=== PATIENT | male | born 1935 | race Caucasian/White ===

== ENCOUNTER 2020-12-15 08:48 | Inpatient (IN) ==
[2020-12-15] MEDS ORDERED: NS 0.9% 1000 ml BAG 1,000 ML IV ONE ×2 (09:06→10:37)
[2020-12-15] MEDS ORDERED: Albuterol/Ipratropium NEB.SOL (2.5/0.5 MG) 3 ML NEB.SOLN INH ONE (09:06)
[2020-12-15 09:40] LABS: Hematocrit 42 % (42-52); Hemoglobin 14.1 g/dL (14.0-18.0); Mean Corpuscular HGB Conc 33 g/dL (31-36); Mean Corpuscular Hemoglobin 30 pg (27-31); Mean Corpuscular Volume 91 fL (80-94); Mean Platelet Volume 10.9 fL (7.4-10.4); Platelet Count 7 10^3/uL (150-450); Red Blood Count 4.69 10^6 /uL (4.18-5.48); Red Cell Distribution Width 15 % (10-15); White Blood Count 9.5 10^3/uL (3.5-10.8)
[2020-12-15 09:41] LABS: ABS Lymphocytes 0.3 10^3/ul (1.0-4.8); ABS Monocytes 0.4 10^3/ul (0-0.8); ABS Neutrophils 8.7 10^3/ul (1.5-7.7); Lymphocyte % 3.4 %
[2020-12-15 09:52] LABS: Albumin 3.6 g/dL (3.2-5.2); Albumin/Globulin Ratio 1.5 (1-3); Calcium 8.7 mg/dL (8.6-10.3); EGFR African American 74.2 (>60); EGFR Non-African American 61.3 (>60); Globulin 2.4 g/dL (2-4); Potassium 4.9 mmol/L (3.5-5.0); Total Bilirubin 0.9 mg/dL (0.2-1.0)
[2020-12-15] MEDS ORDERED: Azithromycin 500 mg/250 ml NS 500 MG/250 ML BAG IVPB ONE (10:37)
[2020-12-15] MEDS ORDERED: cefTRIAXone 1 gm/50 mL NS BAG 1 GM/50 ML BAG IV ONE (10:37)
[2020-12-15] MEDS ORDERED: Ondansetron 4 mg VIAL 2 MG/ML 2 ml VIAL IV PRN (11:41)
[2020-12-15] MEDS ORDERED: Enoxaparin 40 MG/0.4 ML SYR SUBCUT SCH (12:00)
[2020-12-15 12:39] LABS: ABS Lymphocytes 0.3 10^3/ul (1.0-4.8); ABS Monocytes 0.4 10^3/ul (0-0.8); ABS Neutrophils 8.3 10^3/ul (1.5-7.7); Hematocrit 37 % (42-52); Hemoglobin 12.5 g/dL (14.0-18.0); Lymphocyte % 2.9 %; Mean Corpuscular HGB Conc 34 g/dL (31-36); Mean Corpuscular Hemoglobin 30 pg (27-31); Mean Corpuscular Volume 90 fL (80-94); Mean Platelet Volume 10.5 fL (7.4-10.4); Platelet Count 7 10^3/uL (150-450); Red Blood Count 4.15 10^6 /uL (4.18-5.48); Red Cell Distribution Width 15 % (10-15)
[2020-12-15] MEDS ORDERED: Azithromycin 500 mg/250 mL NS IVPB ONE (14:30)
[2020-12-15 18:29] LABS: Mean Platelet Volume 9.3 fL (7.4-10.4); Platelet Count 29 10^3/uL (150-450)
[2020-12-15] MEDS: Mometasone/Formoter 100/5 MDI INH SCH (20:14)
[2020-12-16] MEDS: Hemorrhoidal OINT 1 TUBE PR PRN (00:13)
[2020-12-16] MEDS: Albuterol/Ipratropium NEB.SOL (2.5/0.5 MG) 3 ML NEB.SOLN INH PRN (04:42)
[2020-12-16 06:23] LABS: ABS Lymphocytes 0.4 10^3/ul (1.0-4.8); ABS Monocytes 0.4 10^3/ul (0-0.8); ABS Neutrophils 8.6 10^3/ul (1.5-7.7); Hematocrit 42 % (42-52); Hemoglobin 13.9 g/dL (14.0-18.0); Lymphocyte % 4.1 %; Mean Corpuscular HGB Conc 33 g/dL (31-36); Mean Corpuscular Hemoglobin 30 pg (27-31); Mean Corpuscular Volume 91 fL (80-94); Mean Platelet Volume 11.2 fL (7.4-10.4); Platelet Count 8 10^3/uL (150-450); Red Blood Count 4.62 10^6 /uL (4.18-5.48); Red Cell Distribution Width 15 % (10-15); White Blood Count 9.4 10^3/uL (3.5-10.8)
[2020-12-16 06:37] LABS: Calcium 8.7 mg/dL (8.6-10.3); EGFR African American 98.8 (>60); EGFR Non-African American 81.6 (>60); Potassium 4.3 mmol/L (3.5-5.0)
[2020-12-16] MEDS: Mometasone/Formoter 100/5 MDI INH SCH ×2 (07:29→19:40)
[2020-12-16] MEDS ORDERED: Perflutren Lipid Microsphere 3 ML VIAL ONE (09:51)
[2020-12-16 10:50] LABS: Corrected Retic Count 0.6 % (0.5-1.5); Hematocrit for Retic CNT 38 % (42-52); RBC Retic Count 4.24 10^6/uL (4.18-5.48)
[2020-12-16 10:57] LABS: Activated Partial Thrombo Time 27.6 seconds (26.0-38.0); Fibrinogen 243.9 mg/dL (110.8-404.3); INR 1.1 (0.82-1.09)
[2020-12-16] MEDS: Dexamethasone IV 40 MG in NS 0.9% 50 ML 50 ML IVPB SCH (13:57)
[2020-12-16 14:27] LABS: Mean Platelet Volume 7.8 fL (7.4-10.4); Platelet Count 26 10^3/uL (150-450)
[2020-12-17 06:00] LABS: ABS Lymphocytes 0.4 10^3/ul (1.0-4.8); ABS Monocytes 0.6 10^3/ul (0-0.8); ABS Neutrophils 8.1 10^3/ul (1.5-7.7); Hematocrit 36 % (42-52); Hemoglobin 12.2 g/dL (14.0-18.0); Lymphocyte % 3.8 %; Mean Corpuscular HGB Conc 34 g/dL (31-36); Mean Corpuscular Hemoglobin 30 pg (27-31); Mean Corpuscular Volume 90 fL (80-94); Mean Platelet Volume 10.4 fL (7.4-10.4); Platelet Count 15 10^3/uL (150-450); Red Blood Count 4.05 10^6 /uL (4.18-5.48); Red Cell Distribution Width 15 % (10-15); White Blood Count 9.1 10^3/uL (3.5-10.8)
[2020-12-17 06:19] LABS: Calcium 8.5 mg/dL (8.6-10.3); EGFR African American 110.1 (>60); Potassium 4.7 mmol/L (3.5-5.0)
[2020-12-17] MEDS: Mometasone/Formoter 100/5 MDI INH SCH ×2 (08:23→19:48)
[2020-12-17] MEDS ORDERED: Dexamethasone IV 4 MG/ML 5 ML VIAL (20 MG) ONE (09:11)
[2020-12-17] MEDS: Dexamethasone IV 40 MG in NS 0.9% 50 ML 50 ML IVPB SCH (09:56)
[2020-12-18 06:15] LABS: Hematocrit 36 % (42-52); Hemoglobin 12.3 g/dL (14.0-18.0); Mean Corpuscular HGB Conc 34 g/dL (31-36); Mean Corpuscular Hemoglobin 30 pg (27-31); Mean Corpuscular Volume 90 fL (80-94); Mean Platelet Volume 11.2 fL (7.4-10.4); Platelet Count 21 10^3/uL (150-450); Red Blood Count 4.05 10^6 /uL (4.18-5.48); Red Cell Distribution Width 15 % (10-15); White Blood Count 10.2 10^3/uL (3.5-10.8)
[2020-12-18 07:03] LABS: Calcium 8.7 mg/dL (8.6-10.3); EGFR African American 104.2 (>60); EGFR Non-African American 86.1 (>60); Potassium 4.9 mmol/L (3.5-5.0)
[2020-12-18 07:40] LABS: ABS Lymphocytes 0.5 10^3/ul (1.0-4.8); ABS Neutrophils 8.7 10^3/ul (1.5-7.7); Lymphocyte % 4.9 %
[2020-12-18] MEDS: Dexamethasone IV 40 MG in NS 0.9% 50 ML 50 ML IVPB SCH (08:30)
[2020-12-18] MEDS: Mometasone/Formoter 100/5 MDI INH SCH ×2 (10:40→20:02)
[2020-12-19] MEDS: Mometasone/Formoter 100/5 MDI INH SCH ×2 (07:32→20:11)
[2020-12-19] MEDS: Dexamethasone IV 40 MG in NS 0.9% 50 ML 50 ML IVPB SCH (09:09)
[2020-12-19 10:42] LABS: ABS Lymphocytes 2.1 10^3/ul (1.0-4.8); ABS Monocytes 0.5 10^3/ul (0-0.8); ABS Neutrophils 11.4 10^3/ul (1.5-7.7); Hematocrit 36 % (42-52); Hemoglobin 11.8 g/dL (14.0-18.0); Lymphocyte % 15.2 %; Mean Corpuscular HGB Conc 33 g/dL (31-36); Mean Corpuscular Hemoglobin 29 pg (27-31); Mean Corpuscular Volume 90 fL (80-94); Mean Platelet Volume 11.1 fL (7.4-10.4); Platelet Count 50 10^3/uL (150-450); Red Cell Distribution Width 14 % (10-15)
[2020-12-20 06:11] LABS: Hematocrit 33 % (42-52); Hemoglobin 11.1 g/dL (14.0-18.0); Mean Corpuscular HGB Conc 33 g/dL (31-36); Mean Corpuscular Hemoglobin 30 pg (27-31); Mean Corpuscular Volume 89 fL (80-94); Mean Platelet Volume 10.9 fL (7.4-10.4); Platelet Count 83 10^3/uL (150-450); Red Blood Count 3.74 10^6 /uL (4.18-5.48); Red Cell Distribution Width 15 % (10-15); White Blood Count 19.5 10^3/uL (3.5-10.8)
[2020-12-20 06:23] LABS: Blood Urea Nitrogen 31 mg/dL (6-24); CO2 Carbon Dioxide 37 mmol/L (22-32); Calcium 8.4 mg/dL (8.6-10.3); Chloride 93 mmol/L (101-111); EGFR African American 116.7 (>60); EGFR Non-African American 96.5 (>60); Glucose 122 mg/dL (70-100); Potassium 4.9 mmol/L (3.5-5.0); Sodium 130 mmol/L (135-145)
[2020-12-20 06:46] LABS: ABS Neutrophils 14.6 10^3/ul (1.5-7.7); Lymphocyte % 20.4 %
[2020-12-20] MEDS: Mometasone/Formoter 100/5 MDI INH SCH ×2 (08:44→19:16)
[2020-12-20 10:51] LABS: Magnesium 2.1 mg/dL (1.9-2.7)
[2020-12-21 05:56] LABS: Hematocrit 40 % (42-52); Hemoglobin 13.1 g/dL (14.0-18.0); Mean Corpuscular HGB Conc 33 g/dL (31-36); Mean Corpuscular Hemoglobin 30 pg (27-31); Mean Corpuscular Volume 90 fL (80-94); Mean Platelet Volume 9.9 fL (7.4-10.4); Platelet Count 144 10^3/uL (150-450); Red Blood Count 4.42 10^6 /uL (4.18-5.48); Red Cell Distribution Width 14 % (10-15); White Blood Count 16.1 10^3/uL (3.5-10.8)
[2020-12-21 06:18] LABS: CO2 Carbon Dioxide 40 mmol/L (22-32); Calcium 8.6 mg/dL (8.6-10.3); Chloride 93 mmol/L (101-111); Sodium 132 mmol/L (135-145)
[2020-12-21 06:24] LABS: Blood Urea Nitrogen 27 mg/dL (6-24); EGFR African American 92.7 (>60); EGFR Non-African American 76.6 (>60); Glucose 93 mg/dL (70-100)
[2020-12-21 06:25] LABS: Potassium 5.4 mmol/L (3.5-5.0)
[2020-12-21 06:28] LABS: ABS Eosinophils 0.2 10^3/ul (0-0.6); ABS Monocytes 0.9 10^3/ul (0-0.8); Eosinophil % 1.2 %; Lymphocyte % 24.8 %; Nucleated Red Blood Cells % 0.1
[2020-12-21] MEDS: Mometasone/Formoter 100/5 MDI INH SCH ×2 (07:36→19:22)
[2020-12-21] MEDS ORDERED: Patiromer POWDER 8.4 GM PAK PO ONE (17:30)
[2020-12-22] MEDS: Hemorrhoidal OINT 1 TUBE PR PRN (02:42)
[2020-12-22 06:47] LABS: CO2 Carbon Dioxide 37 mmol/L (22-32); Calcium 8.6 mg/dL (8.6-10.3); Chloride 90 mmol/L (101-111); Sodium 127 mmol/L (135-145)
[2020-12-22 06:50] LABS: Potassium 5.1 mmol/L (3.5-5.0)
[2020-12-22 06:52] LABS: Blood Urea Nitrogen 28 mg/dL (6-24); EGFR African American 107.1 (>60); EGFR Non-African American 88.5 (>60); Glucose 103 mg/dL (70-100)
[2020-12-22 08:04] LABS: Hematocrit 39 % (42-52); Hemoglobin 13.2 g/dL (14.0-18.0); Mean Corpuscular HGB Conc 34 g/dL (31-36); Mean Corpuscular Hemoglobin 30 pg (27-31); Mean Corpuscular Volume 89 fL (80-94); Mean Platelet Volume 10.2 fL (7.4-10.4); Platelet Count 132 10^3/uL (150-450); Red Blood Count 4.42 10^6 /uL (4.18-5.48); Red Cell Distribution Width 14 % (10-15); White Blood Count 18.2 10^3/uL (3.5-10.8)
[2020-12-22] MEDS: Mometasone/Formoter 100/5 MDI INH SCH ×2 (09:26→19:31)
[2020-12-22 12:01] LABS: C Reactive Protein 15.66 mg/L (<8.01)
[2020-12-23 06:15] LABS: Hematocrit 38 % (42-52); Hemoglobin 12.7 g/dL (14.0-18.0); Mean Corpuscular HGB Conc 33 g/dL (31-36); Mean Corpuscular Hemoglobin 30 pg (27-31); Mean Corpuscular Volume 90 fL (80-94); Mean Platelet Volume 9.7 fL (7.4-10.4); Platelet Count 117 10^3/uL (150-450); Red Blood Count 4.28 10^6 /uL (4.18-5.48); Red Cell Distribution Width 15 % (10-15); White Blood Count 16.9 10^3/uL (3.5-10.8)
[2020-12-23 06:37] LABS: Blood Urea Nitrogen 28 mg/dL (6-24); CO2 Carbon Dioxide 38 mmol/L (22-32); Calcium 8.4 mg/dL (8.6-10.3); Chloride 92 mmol/L (101-111); EGFR African American 104.2 (>60); EGFR Non-African American 86.1 (>60); Glucose 110 mg/dL (70-100); Potassium 4.9 mmol/L (3.5-5.0); Sodium 130 mmol/L (135-145)
[2020-12-23 06:42] LABS: ABS Eosinophils 0.5 10^3/ul (0-0.6); ABS Lymphocytes 2.7 10^3/ul (1.0-4.8); ABS Monocytes 1.3 10^3/ul (0-0.8); ABS Neutrophils 12.3 10^3/ul (1.5-7.7); Eosinophil % 3.1 %; Lymphocyte % 16.2 %
[2020-12-23] MEDS: Mometasone/Formoter 100/5 MDI INH SCH ×2 (08:03→19:50)
[2020-12-23] MEDS ORDERED: Magnesium Hydroxide LIQ 30 ML UDC PO PRN (08:17)
[2020-12-23] MEDS ORDERED: Senna TAB 8.6 mg TAB PO PRN (08:17)
[2020-12-23] MEDS ORDERED: Polyethylene Glycol 3350 17 GM PACKET PO PRN (11:39)
[2020-12-23] MEDS ORDERED: Sodium Phosphate ADULT ENEMA 133 ML BTL PR PRN (12:54)
[2020-12-24 06:50] LABS: Hematocrit 37 % (42-52); Hemoglobin 12.7 g/dL (14.0-18.0); Mean Corpuscular HGB Conc 34 g/dL (31-36); Mean Corpuscular Hemoglobin 30 pg (27-31); Mean Corpuscular Volume 89 fL (80-94); Mean Platelet Volume 9.3 fL (7.4-10.4); Platelet Count 114 10^3/uL (150-450); Red Cell Distribution Width 15 % (10-15); White Blood Count 15.2 10^3/uL (3.5-10.8)
[2020-12-24 07:08] LABS: Blood Urea Nitrogen 28 mg/dL (6-24); CO2 Carbon Dioxide 40 mmol/L (22-32); Calcium 8.5 mg/dL (8.6-10.3); Chloride 92 mmol/L (101-111); EGFR African American 102.8 (>60); EGFR Non-African American 84.9 (>60); Glucose 110 mg/dL (70-100); Magnesium 2.3 mg/dL (1.9-2.7); Sodium 131 mmol/L (135-145)
[2020-12-24 07:09] LABS: Potassium 5.5 mmol/L (3.5-5.0)
[2020-12-24 07:38] LABS: Polychromasia 1+
[2020-12-24 07:39] LABS: ABS Eosinophils 0.4 10^3/ul (0-0.6); ABS Lymphocytes 1.9 10^3/ul (1.0-4.8); ABS Monocytes 1.3 10^3/ul (0-0.8); ABS Neutrophils 11.5 10^3/ul (1.5-7.7); Eosinophil % 2.8 %; Lymphocyte % 12.5 %
[2020-12-24] MEDS: Mometasone/Formoter 100/5 MDI INH SCH ×2 (07:52→19:45)
[2020-12-25 07:06] LABS: ABS Eosinophils 0.2 10^3/ul (0-0.6); ABS Lymphocytes 0.7 10^3/ul (1.0-4.8); ABS Monocytes 0.8 10^3/ul (0-0.8); ABS Neutrophils 14.1 10^3/ul (1.5-7.7); Eosinophil % 1.1 %; Hematocrit 37 % (42-52); Hemoglobin 12.2 g/dL (14.0-18.0); Lymphocyte % 4.7 %; Mean Corpuscular HGB Conc 33 g/dL (31-36); Mean Corpuscular Hemoglobin 30 pg (27-31); Mean Corpuscular Volume 90 fL (80-94); Platelet Count 83 10^3/uL (150-450); Red Blood Count 4.07 10^6 /uL (4.18-5.48); Red Cell Distribution Width 15 % (10-15); White Blood Count 15.9 10^3/uL (3.5-10.8)
[2020-12-25 07:19] LABS: Calcium 8.1 mg/dL (8.6-10.3); EGFR African American 111.7 (>60); EGFR Non-African American 92.3 (>60)
[2020-12-25] MEDS: Mometasone/Formoter 100/5 MDI INH SCH ×2 (09:48→21:24)
[2020-12-25] MEDS: Morphine ORAL.SOLN 10 mg 2 mg/ml UDC 5 ml (10 mg) PO PRN (11:30)
[2020-12-25] MEDS ORDERED: Furosemide 20 mg/2 ml IV VIAL IV ONE (12:16)
[2020-12-25] MEDS ORDERED: Lorazepam PYXIS KEY PRN (15:56)
[2020-12-25] MEDS ORDERED: LORazepam 2 mg VIAL 1 ml IV PUSH ONE (15:56)
[2020-12-25] MEDS: Albuterol/Ipratropium NEB.SOL (2.5/0.5 MG) 3 ML NEB.SOLN INH PRN (16:26)
[2020-12-25] MEDS ORDERED: NS 0.9% 1000 ml BAG 1,000 ML IV ONE (22:04)
[2020-12-26] MEDS: Morphine ORAL.SOLN 10 mg 2 mg/ml UDC 5 ml (10 mg) PO PRN (01:07)
[2020-12-26] MEDS ORDERED: Morphine 2 MG/ML SYRINGE IV ONE (03:36)
[2020-12-26] MEDS: Mometasone/Formoter 100/5 MDI INH SCH (08:10)
[2020-12-26] MEDS ORDERED: Morphine 2 MG/ML SYRINGE IV PRN (12:04)
[2020-12-26 15:27] VITALS: BP 138/93
== END 2020-12-26 15:31 | disposition expired ==
LOC: ED 08:48 → MEDTELE 08:48 → MED 12-22 00:21
PROVIDERS: ADMIT Hospitalist; ATTEND Student in an Organized Health Care Education/Training Program